=== PATIENT | male | born 1935 | race Caucasian/White ===

== ENCOUNTER 2020-02-25 17:11 | Emergency (ER) | payer MEDICARE, MEDICAID ==
[2020-02-25 18:11] LABS: HEMATOCRIT 33.6 % (37.9-51.0); HEMOGLOBIN 11.1 g/dL (13.5-17.0); MEAN CORPUSCULAR HEMOGLOBIN 28.4 pg (27.0-33.4); MEAN CORPUSCULAR HGB CONC 33.2 g/dL (32.0-36.0); MEAN CORPUSCULAR VOLUME 86 fl (80-97); PLATELET COUNT 239 10^3/uL (150-450); RED BLOOD COUNT 3.92 10^6/uL (4.35-5.55); RED CELL DISTRIBUTION WIDTH 14.9 % (11.5-14.0); WHITE BLOOD COUNT 3.4 10^3/uL (4.0-10.5)
[2020-02-25 18:25] LABS: INTERNATIONAL RATION (INR) 0.96
[2020-02-25 18:28] LABS: ALBUMIN 2.8 g/dL (3.5-5.0); ALKALINE PHOSPHATASE 95 U/L (38-126); ANION GAP 6 (5-19); ASPARTATE AMINO TRANSFERASE 36 U/L (17-59); BILIRUBIN,DIRECT 0.3 mg/dL (0.0-0.4); BILIRUBIN,TOTAL 0.5 mg/dL (0.2-1.3); BLOOD UREA NITROGEN 25 mg/dL (7-20); CALCIUM 8.8 mg/dL (8.4-10.2); CARBON DIOXIDE 31 mmol/L (22-30); CHLORIDE 93 mmol/L (98-107); GLUCOSE 78 mg/dL (75-110); POTASSIUM 4.5 mmol/L (3.6-5.0); TOTAL PROTEIN 6.4 g/dL (6.3-8.2)
--- NOTE | 2020-02-25 18:53 | RADIOLOGY REPORT (SQ) ---
EXAM DESCRIPTION: CHEST SINGLE VIEW IMAGES COMPLETED DATE/TIME: 02/25/2020 6:26 pm REASON FOR STUDY: sob COMPARISON: None. EXAM PARAMETERS: NUMBER OF VIEWS: One view. TECHNIQUE: Single frontal radiographic view of the chest acquired. RADIATION DOSE: NA LIMITATIONS: None. FINDINGS: LUNGS AND PLEURA: There appears to be a 10 cm long pleural-based mass in the right upper h emithorax. Chronic interstitial changes. Cannot exclude a minimal right pleural effusion. MEDIASTINUM AND HILAR STRUCTURES: No masses. Contour normal. HEART AND VASCULAR STRUCTURES: Heart normal in size. Normal vasculature. BONES: No acute findings. HARDWARE: None in the chest. OTHER: No other significant finding. IMPRESSION: Right pleural mass with chronic lung changes. TECHNICAL DOCUMENTATION: JOB ID: [id number] 2010 [employer]- All Rights Reserved Reading location - IP/workstation name: [email or web address]
--- NOTE | 2020-02-25 20:14 | ER Document Report ---
ED Medical Screen (RME) - General Chief Complaint: Congestion Stated Complaint: MEDICAL COMPLAINT Time Seen by Provider: 02/25/20 20:01 Mode of Arrival: Medic Information source: Emergency Med Personnel Notes: 84-year-old male presented to ED for respiratory changes. According to the EMS report patient was sent to the emergency room for increased moist cough and congestion. He was cleared from Covid 14 days ago he is a resident at [facility]. According the patient he does not have any pain or discomfort he has no idea why he is in the emergency room. He is on oxygen 2 L nasal cannula at all times. He is his O2 sat is low 90s at this time. States he is not in any discomfort at this time. Chest x-ray has been completed which shows a 10 cm long pleural mass in the right upper hemothorax chronic interstitial changes. I have greeted and performed a rapid initial assessment of this patient. A comprehensive ED assessment and evaluation of the patient, analysis of test results and completion of medical decision making process will be conducted by an additional ED providers. - Related Data Allergies/Adverse Reactions: No Known Allergies Allergy (Verified 02/25/20 17:48) Physical Exam - Vital signs Vitals: Resp Pulse Ox 16 100 02/25/20 17:23 02/25/20 17:23 Course - Vital Signs Vital signs: Temp Pulse Resp BP Pulse Ox 97.8 F 14 134/81 H 91 L 02/25/20 17:25 02/25/20 18:02 02/25/20 18:02 02/25/20 18:02 - Laboratory Results Result Diagrams: 02/25/20 17:27 02/25/20 17:27 Laboratory Results Interpreted: 02/25/20 02/25/20 17:27 17:27 WBC 3.4 L RBC 3.92 L Hgb 11.1 L Hct 33.6 L RDW 14.9 H Sodium 129.6 L Chloride 93 L Carbon Dioxide 31 H BUN 25 H Albumin 2.8 L
--- NOTE | 2020-02-25 21:12 | EKG REPORT ---
SEVERITY:- OTHERWISE NORMAL ECG - SINUS RHYTHM LOW VOLTAGE IN FRONTAL LEADS : Confirmed by: Rayshawn Sehn MD 25-Feb-2020 21:11:13
--- NOTE | 2020-02-25 22:05 | ER Document Report ---
ED General - General Chief Complaint: Congestion Stated Complaint: MEDICAL COMPLAINT Time Seen by Provider: 02/25/20 20:01 Primary Care Provider: THU CARPENTER MD [Primary Care Provider] - Follow up in 1 week JAZMIN IZAGUIRRE MD [ACTIVE STAFF] - Follow up in 1 week Mode of Arrival: Medic Notes: 84-year-old male retirement resident presents with request that we rule out Covid after patient had a chest x-ray for increased congestion and showed a "pleural mass"likely pleural blood and second rib fracture. Patient endorses having had a mechanical fall a few weeks ago. Patient denies any symptoms at this time including denying any head pain, neck pain, back pain, chest pain, abdominal pain, weakness or numbness, fever, increased cough, shortness of breath - Related Data Allergies/Adverse Reactions: No Known Allergies Allergy (Verified 02/25/20 17:48) Past Medical History - General Information source: Patient, Transfer Record, Emergency Med Personnel - Social History Smoking Status: Former Smoker Family History: Reviewed & Not Pertinent Patient has homicidal ideation: No Review of Systems - Review of Systems Notes: REVIEW OF SYSTEMS: CONSTITUTIONAL : Denies fever, chills, or sweats. EENT: Denies recent cold/sinus symptoms, denies throat pain CARDIOVASCULAR: Denies chest pain, MICHAEL RESPIRATORY: Denies cough, denies shortness of breath. GASTROINTESTINAL: Denies abdominal pain, nausea/vomiting. GENITOURINARY: Denies difficulty urinating, painful urination. MUSCULOSKELETAL: Denies neck pain, back pain. SKIN: Denies rash or skin lesions. HEMATOLOGIC : Denies easy bruising or bleeding. LYMPHATIC: Denies swollen, enlarged glands. NEUROLOGICAL: Denies headache, denies change in gait. PSYCHIATRIC: Denies anxiety or stress or depression. Physical Exam - Vital signs Vitals: Resp Pulse Ox 16 100 02/25/20 17:23 02/25/20 17:23 - Notes Notes: PHYSICAL EXAMINATION: GENERAL: Awake, alert, elderly chronically ill-appearing man with no visible signs of discomfort in no acute distress HEAD: Atraumatic, normocephalic. EYES: Pupils equal round and appropriate constriction, sclera anicteric, conjunctiva are normal. ENT: nares patent, moist mucous membranes. NECK: Normal range of motion, supple without lymphadenopathy LUNGS: Breath sounds clear to auscultation bilaterally and equal. No wheezes rales or rhonchi. Normal respiratory rate and effort, good air movement, no wheezing, nasal cannula in place HEART: Regular rate and rhythm without murmurs ABDOMEN: Soft, nontender, no guarding, no masses, no CVAT EXTREMITIES: Normal range of motion, no pitting or edema. No cyanosis. Patient with fresh clean bandage on left lower leg, when I attempted to examine underneath the bandage patient refused saying that "did not need to do that" that his leg was fine, that the bandage was just changed, and that he does not want me to look at it NEUROLOGICAL: Awake, alert, conversing appropriately, moves all extremities spontaneously. PSYCH: Normal mood, normal affect. SKIN: Warm, Dry Course - Re-evaluation Re-evalutation: 02/25/20 22:06 Patient coming for Covid test after finding on chest x-ray. Chest x-ray read from retirement shows second rib fracture with pleural mass likely pleural blood. Patient endorses 2 weeks ago trauma, denies any symptoms currently. Normal respiratory exam, satting in the mid 90s on his home dose of 2 L nasal cannula, will obtain CT head/C-spine/chest for trauma given age to rule out other underlying injuries given low incidence of second rib fracture. Will give dose of dexamethasone for possible very mild COPD exacerbation from retirement report, but will hold off on giving antibiotics at this time given no increased sputum. 02/26/20 01:55 Patient's work-up significant for mild hyponatremia, large pleural mass concerning for cancer on chest CT, and testing Covid positive. Patient had previously had Covid few weeks ago but then had been "cleared" 14 days ago and given new subjective congestion as per [employer] this is likely insurance account representative of a new infection. I called and spoke to [employer] Brijesh Cortez regarding the large pl eural mass and to the patient testing positive for Covid. I attempted to call next of kin but the listed number was disconnected and I asked Ms. márquez to contact the family regarding these diagnoses. Given that patient has no hypoxia, normal work of breathing, no other signs of complications of Covid, no indication to admit patient for Covid at this time. Gave patient dexamethasone and azithromycin will discharge with azithromycin course. Mild hyponatremia will need to be worked up by his primary doctor but given that it is mild and asymptomatic no indication for intervention at this time. - Vital Signs Vital signs: Temp Pulse Resp BP Pulse Ox 98.6 F 17 108/66 98 02/25/20 23:11 02/26/20 02:00 02/26/20 02:00 02/26/20 02:00 - Laboratory Results Result Diagrams: 02/25/20 17:27 02/25/20 17:27 Laboratory Results Interpreted: 02/25/20 02/25/20 17:27 17:27 WBC 3.4 L RBC 3.92 L Hgb 11.1 L Hct 33.6 L RDW 14.9 H Sodium 129.6 L Chloride 93 L Carbon Dioxide 31 H BUN 25 H Albumin 2.8 L Critical Laboratory Results Reviewed: No Critical Results - Radiology Results Critical Radiology Results Reviewed: No Critical Results - EKG Interpretation by Me Additional EKG results interpreted by me: 02/26/20 02:00 Sinus rhythm, no significant ST elevations or depressions, no significant T wave abnormalities Discharge - Discharge Clinical Impression: Hyponatremia, Mass of pleura, COVID-19 virus infection Disposition: HOME-ASSISTED LIVING Additional Instructions: Patient was provided with discharge information including: As a person under investigation for Covid 19, the [place] department of Health and Human Services, division of public health advises you to adhere to th e following guidance until your test results are reported to you. If your test result is positive, you will receive additional information from your provider and your local health department at that time. Remain at home until you are cleared by the health provider or public health authorities. Keep a log of visitors to your home, notify any visitors to your home of your isolation status. If you plan to move to a new address or leave the count includes the [facility], notify the local health department in your County. Call your doctor or seek care if you have an urgent medical need. Before seeking medical care, call ahead to get instructions from the provider before arriving at the medical office clinic or hospital. Notify them that you are being tested for the virus that causes Covid 19 so that arrangements can be made, as necessary, to prevent transmission to others in the healthcare setting. Next, notify the local health department in your county. If a medical emergency arises and you need to call 911, inform the first responders that you are being tested for the virus that causes Covid 19. Next, notify the local health department in your county. Hyponatremia You have an abnormally low level of serum sodium, called hyponatremia. Low serum sodium may cause weakness, fatigue, confusion, or even seizures. Usually, low sodium is due to taking diuretics (water pills), combined with drinking too much water. It can also be due to excessive vomiting or diarrhea. If no obvious cause is evident, further evaluation will be necessary. If the hyponatremia results from taking diuretics, it's treated by restricting the amount of water you can drink. If it's due to vomiting and diarrhea, it's treated by drinking liberal amounts of rehydration solution (for example Lytren or Pedialyte). A follow-up blood test is often done to see that the sodium is returning to normal. Call the physician if you have severe weakness, muscle twitching or cramping, palpitations (pounding or irregular heartbeat), confusion, headache, seizures, or any other new or alarming symptoms. There was a large mass on chest CT concerning for pleural/lung cancer that caused the rib fracture that was seen on chest x-ray at your facility. Follow- up with the oncologist and the primary doctor within 1 week. If you have any shortness of breath, hypoxia, confusion, uncontrolled vomiting, severe diarrhea, weakness, fainting, or any other worsening or alarming symptoms return to the emergency department immediately. Prescriptions: Azithromycin 250 mg PO QAM 4 Days #4 tablet Referrals: THU CARPENTER MD [Primary Care Provider] - Follow up in 1 week JAZMIN IZAGUIRRE MD [ACTIVE STAFF] - Follow up in 1 week
[2020-02-25] MEDS ORDERED: DEXAMETHASONE SOD PHOS INJ 10 MG/1 ML VIAL IV ONE (22:09)
--- NOTE | 2020-02-25 23:24 | RADIOLOGY REPORT (SQ) ---
EXAM DESCRIPTION: CT HEAD WITHOUT IV CONTRAST COMPLETED DATE/TME: 02/25/2020 22:52 CLINICAL HISTORY: 84 years, Male, trauma COMPARISON: None. TECHNIQUE: 202 Images stored on PACS. All CT scanners at this facility use dose modulation, iterative reconstruction, and/or weight based dosing when appropriate to reduce radiation dose to as low as reasonably achievable (ALARA). [facility]: Dose Right [facility]: CareDose [facility]: Dose Right [facility]: Teradose 4D [facility]: [place] LIMITATIONS: None. FINDINGS: The globes are intact. The paranasal sinuses and mastoid air cells are well aerated. No displaced or depressed skull fracture. No acute intracranial hemorrhage. CT is limited for evaluation of acute infarct. No CT evidence for large or territorial acute infarct. Diffuse age-appropriate atrophy. Small vessel ischemic change. No mass or midline shift IMPRESSION: Atrophy and small vessel ischemic change TECHNICAL DOCUMENTATION: Quality ID # 436: Final reports with documentation of one or more dose reduction techniques (e.g., Automated exposure control, adjustment of the mA and/or kV according to patient size, use of iterative reconstruction technique) copyright 2011 [employer]- All Rights Reserved
--- NOTE | 2020-02-25 23:25 | RADIOLOGY REPORT (SQ) ---
CLINICAL HISTORY: trauma COMPARISON: None. TECHNIQUE: CT CERVICAL SPINE WITHOUT IV CONTRAST on 02/25/2020 9:56 PM [employer] This exam was performed according to our departmental dose-optimization program, which includes automated exposure control, adjustment of the mA and/or kV according to patient size and/or use of iterative reconstruction technique. FINDINGS: There is no acute fracture. Vertebral body heights are preserved. There is grade 1 anterolisthesis of C6 on C7. There is moderate diffuse facet arthritis bilaterally. Disc spaces are maintained. Soft tissues are unremarkable. IMPRESSION: No acute fracture or subluxation.
--- NOTE | 2020-02-25 23:26 | RADIOLOGY REPORT (SQ) ---
EXAM DESCRIPTION: XR PELVIS 1-2 VIEWS COMPLETED DATE/TME: 02/25/2020 22:52 CLINICAL HISTORY: 84 years, Male, trauma COMPARISON: 08/07/2017 hip series NUMBER OF VIEWS: 1 TECHNIQUE: AP pelvis LIMITATIONS: None. FINDINGS: Osteopenia. No radiographic evidence for acute fracture or dislocation. Surgical clips in the pelvis. Vascular calcifications. Degenerative change of the hips bilaterally IMPRESSION: No acute osseous abnormality copyright 2010 [employer]- All Rights Reserved
--- NOTE | 2020-02-25 23:27 | RADIOLOGY REPORT (SQ) ---
EXAM DESCRIPTION: CT CHEST WITHOUT CLINICAL HISTORY: 84 years Male; MASS ON XRAY shortness of breath. TECHNIQUE: CT of the chest without intravenous contrast. All CT scans at this facility use dose modulation, iterative reconstruction, and/or weight based dosing when appropriate to reduce radiation dose to as low as reasonably achievable. COMPARISON: Radiograph of the chest obtained earlier in the evening at 5:54 PM FINDINGS: Chest: Lungs: Lungs are hyperinflated with flattening of the hemidiaphragms and increase in AP diameter. There is paraseptal and centrilobular emphysema present throughout. There is patchy interstitial infiltrate in the perihilar and lower lobes posteriorly. Large calcified granulomas present in the superior segment of the right lower lobe. In the right upper lobe along the lateral chest wall extending towards the apex is a pleural-based mass which appears to extend through the chest wall and is associated with erosive changes of the right second and third ribs. This area measures approximately 14.5 x 3.5 x 9.5 cm and is concerning for neoplasm. Mediastinum: Heart size is small. There is coronary artery and aortic vascular calcifications. Small pretracheal lymph nodes are present which measure 13 mm in size. Bones: Erosions of the undersurface of the right second and third rib is seen consistent with osseous involvement with the pleural-based mass. Bone mineralization is diminished and there is curvature of the spine convex right. Multiple thoracic spine compression fractures are noted including traction years of T3, T4, T7, T8, T9, T11 and L1. These appear chronic. Upper Abdomen: Motion artifact is present. Visualization of the upper abdominal structures is limited. IMPRESSION: 1. Paraseptal and centrilobular emphysema. COPD. 2. Large right chest wall mass which appears to be pleural-based. This is associated with destructive changes of the right lateral second and third rib. 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 3. Patchy perihilar and lower lobe interstitial infiltrate. 4. Multiple thoracic spine compression fractures.
[2020-02-26] MEDS ORDERED: AZITHROMYCIN 250 MG TABLET PO ONE (00:48)
[2020-02-26 02:04] VITALS: BP 108/66
== END 2020-02-26 03:01 | disposition home health service (06) ==
LOC: ER 17:11
DX: U07.1 COVID-19 (principal); E87.1 Hypo-osmolality and hyponatremia; R91.8 Other nonspecific abnormal finding of lung field; R68.89 Other general symptoms and signs; Z20.828 Contact with and (suspected) exposure to other viral communicable diseases; Z99.81 Dependence on supplemental oxygen
CPT/HCPCS: 93005; 99285; 96374; 36415; 87040; 83605; 85025; 85610; 0241U ×4; 80053; 71045; 72170; 70450; 71250; 72125; 93010; A9270; J1100; C9803; 87635